=== PATIENT | female | born 1965 | race Asian ===

== ENCOUNTER 2018-12-09 06:00 | Day surgery (SDC) | payer OTHER ==
[~2018-12-09 06:00] MED LIST: AVALIDE 300-121 EACH PO
[2018-12-09] MEDS ORDERED: PERCOCET 5-3251 EACH PO (08:42)
[2018-12-09] MEDS ORDERED: RECTICARE30 GM TOP (08:43)
== END 2018-12-09 13:00 | disposition home or self-care (01) ==
LOC: CIR.AMB 06:00
DX: K64.8 Other hemorrhoids (principal); K64.4 Residual hemorrhoidal skin tags

== ENCOUNTER 2019-05-17 06:52 | Day surgery (SDC) | payer OTHER ==
[~2019-05-17 06:52] MED LIST changes: +PERCOCET 5-3251 EACH PO; +RECTICARE30 GM TOP
== END 2019-05-17 14:45 | disposition home or self-care (01) ==
LOC: AMB-ENDOS 06:52
DX: K92.1 Melena (principal)